=== PATIENT | female | born 1960 | race Caucasian/White ===

== ENCOUNTER 2023-09-05 18:30 | Emergency (ER) | payer OTHER | END 2023-09-05 19:38 | disposition home or self-care (01) | LOC: BURERS 18:30 | DX: S52.501A Unspecified fracture of the lower end of right radius, initial encounter for closed fracture (principal); V29.99XA Rider (driver) (passenger) of other motorcycle injured in unspecified traffic accident, initial encounter; Y93.I9 Activity, other involving external motion | CPT/HCPCS: 29105 ==